=== PATIENT | female | born 1950 | race Caucasian/White ===

== ENCOUNTER 2017-05-26 01:06 | Emergency (ER) | payer OTHER, MEDICAID ==
[~2017-05-26] VITALS: Ht 154.9 cm; Wt 79.4 kg
[2017-05-26 01:17] VITALS: Ht 154.9 cm; Wt 79.4 kg
[2017-05-26 02:27] VITALS: BP 146/82
== END 2017-05-26 02:27 | disposition home or self-care (01) ==
LOC: ED 01:06
DX: I10 Essential (primary) hypertension (principal); E78.00 Pure hypercholesterolemia, unspecified; Z86.79 Personal history of other diseases of the circulatory system